=== PATIENT | male | born 1970 | race Caucasian/White ===

== ENCOUNTER 2020-11-15 10:19 | Emergency (ER) | payer BC ==
[~2020-11-15] VITALS: Ht 177.8 cm; Wt 79.4 kg
[2020-11-15 10:20] VITALS: BP_SYST 127
--- NOTE | 2020-11-15 10:20 | NUR ---
Patient to ER bed 7 to gown for evaluation. Side rails up. Report given to ALMAZ LÓPEZ.
--- NOTE | 2020-11-15 10:25 | NUR ---
Patient presented to ER C/O abdominal pain. Patient ambulatory to ER, afebrile, denies N/V/D, denies pain at this tie. Patient states he has intermittent abdominal pain with constipation x7 days. Patient reports being seen at and given Lefofloxacin & MOM.
--- NOTE | 2020-11-15 10:35 | NUR ---
ER Dr. GUZMAN at bedside examining patient.
[2020-11-15 11:17] LABS: BILIRUBIN,URINE 2+ (NEGATIVE); BLOOD, URINE 2+ (NEGATIVE); GLUCOSE,URINE NEGATIVE (NEGATIVE); KETONES,URINE 3+ (NEGATIVE); LEUKOCYTE ESTERASE ,URINE NEGATIVE (NEGATIVE); NITRITE, URINE NEGATIVE (NEGATIVE); PROTEIN URINE 1+ (NEGATIVE); UROBILINOGEN,URINE 0.2 (0.2-1.0)
[2020-11-15 11:19] LABS: CLARITY/URINE SLIGHTLY HAZY (CLEAR); COLOR,URINE AMBER (YELLOW)
[2020-11-15 11:51] LABS: BACTERIA,URINE FEW /HPF (None Seen); MUCUS,URINE 2+ /LPF (None Seen); WBC,URINE NONE SEEN /HPF (0-3)
[2020-11-15 11:54] LABS: BASOPHILS # (AUTO) 0.1 K/uL (0.0-0.2); BASOPHILS % (AUTO) 0.5 % (0.0-2.0); EOSINOPHILS % (AUTO) 0.2 % (0.0-4.0); HEMATOCRIT 39.7 % (36-54); HEMOGLOBIN 13.7 g/dL (14.0-18.0); LYMPHOCYTES # (AUTO) 1.1 K/uL (1.0-5.5); LYMPHOCYTES % (AUTO) 6.3 % (20.5-51.5); MEAN CORPUSCULAR HEMOGLOBIN 32 pg (27-31); MEAN CORPUSCULAR HGB CONC 35 % (32-36); MEAN CORPUSCULAR VOLUME 92 fL (79.0-98.0); MONOCYTES % (AUTO) 5.4 % (1.7-9.3); NEUTROPHILS # (AUTO) 15.5 K/uL (1.8-7.7); NEUTROPHILS % (AUTO) 87.6 % (40.0-70.0); PLATELET COUNT (AUTO) 248 K/uL (130-430); RED BLOOD CELL COUNT(AUTO) 4.31 MIL/uL (4.2-6.2); WHITE BLOOD COUNT (AUTO) 17.7 K/uL (4.8-10.8)
[2020-11-15 11:57] LABS: CALCIUM 9.1 mg/dL (8.4-11.0); CREATININE 0.98 mg/dL (0.55-1.30); POTASSIUM 3.9 mmol/L (3.5-5.1)
[2020-11-15] MEDS ORDERED: HYDR-3917 PO (12:03)
[2020-11-15 12:08] LABS: ALBUMIN 3.1 g/dL (3.4-4.8); TOTAL BILIRUBIN 0.3 mg/dL (0.0-1.0)
[2020-11-15 13:00] VITALS: BP_SYST 127
--- NOTE | 2020-11-15 13:00 | NUR ---
Patient given written and verbal discharge instructions and verbalizes understanding. ER MD discussed with patient the results and treatment provided. Patient in stable condition. ID arm band removed. IV catheter removed intact and dressing applied, no active bleeding. Rx of Levaquin, Tramadol, Flagyl given. Patient educated on pain management and to follow up with PMD. Pain Scale 0/10. Opportunity for questions provided and answered. Medication side effect fact sheet provided.
== END 2020-11-15 13:00 | disposition home or self-care (01) ==
LOC: SED 10:19
DX: R10.84 Generalized abdominal pain (principal); Z79.899 Other long term (current) drug therapy
CPT/HCPCS: 36415; 74018; 76376; 80053; 81000-TC; 83690-TC; 85025; 99285

== ENCOUNTER 2020-11-17 06:20 | Inpatient (IN) | payer BC, SELFPAY ==
[~2020-11-17] VITALS: Ht 177.8 cm; Wt 75.7 kg
[~2020-11-17 06:20] MED LIST: HYDR-3917 PO
[2020-11-17 06:35] VITALS: BP_SYST 120
[2020-11-17] MEDS ORDERED: NACL 0.9% 1,000 ML IV ONE (07:00)
[2020-11-17 07:46] LABS: BILIRUBIN,URINE NEGATIVE (NEGATIVE); BLOOD, URINE 2+ (NEGATIVE); COLOR,URINE YELLOW (YELLOW); GLUCOSE,URINE NEGATIVE (NEGATIVE); KETONES,URINE 3+ (NEGATIVE); LEUKOCYTE ESTERASE ,URINE NEGATIVE (NEGATIVE); NITRITE, URINE NEGATIVE (NEGATIVE); PROTEIN URINE NEGATIVE (NEGATIVE); UROBILINOGEN,URINE 0.2 (0.2-1.0)
[2020-11-17 07:48] LABS: BASOPHILS # (AUTO) 0.1 K/uL (0.0-0.2); BASOPHILS % (AUTO) 0.6 % (0.0-2.0); EOSINOPHILS % (AUTO) 0.1 % (0.0-4.0); HEMATOCRIT 42.1 % (36-54); HEMOGLOBIN 14.6 g/dL (14.0-18.0); LYMPHOCYTES # (AUTO) 1.4 K/uL (1.0-5.5); LYMPHOCYTES % (AUTO) 6.4 % (20.5-51.5); MEAN CORPUSCULAR HEMOGLOBIN 32 pg (27-31); MEAN CORPUSCULAR HGB CONC 35 % (32-36); MEAN CORPUSCULAR VOLUME 91 fL (79.0-98.0); MONOCYTES # (AUTO) 1.5 K/uL (0.0-1.0); MONOCYTES % (AUTO) 6.8 % (1.7-9.3); NEUTROPHILS # (AUTO) 18.6 K/uL (1.8-7.7); NEUTROPHILS % (AUTO) 86.1 % (40.0-70.0); PLATELET COUNT (AUTO) 285 K/uL (130-430); RED BLOOD CELL COUNT(AUTO) 4.63 MIL/uL (4.2-6.2); RED CELL DISTRIBUTION WIDTH 12.8 % (9.0-15.0); WHITE BLOOD COUNT (AUTO) 21.5 K/uL (4.8-10.8)
[2020-11-17 07:48] LABS: CLARITY/URINE SLIGHTLY CLOUDY (CLEAR)
[2020-11-17 08:14] LABS: CALCIUM 9.2 mg/dL (8.4-11.0); CREATININE 0.84 mg/dL (0.55-1.30); POTASSIUM 3.2 mmol/L (3.5-5.1)
[2020-11-17 08:16] LABS: INR 1.2 (0.80-1.20); PROTHROMBIN TIME 11.8 SECS (9.5-12.5)
[2020-11-17 08:25] LABS: BACTERIA,URINE FEW /HPF (None Seen); WBC,URINE 0-3 /HPF (0-3)
[2020-11-17 08:29] LABS: TOTAL BILIRUBIN 0.4 mg/dL (0.0-1.0)
[2020-11-17] MEDS ORDERED: MORPHINE 4 MG/ML INJ. SYRINGE IVP ONE (09:00)
[2020-11-17] MEDS ORDERED: MORPHINE 4 MG/ML INJ. SYRINGE ONE (09:01)
[2020-11-17] MEDS: KCL 20 mEq in D5/0.45NS 1000mL 1,000 ML IV SCH (10:47)
[2020-11-17 11:19] VITALS: BP_SYST 147
[2020-11-17] MEDS ORDERED: HYDROmorphone 1 MG INJ. 1 MG/ML AMPUL ONE ×2 (12:50→16:40)
[2020-11-17] MEDS: HYDROmorphone 1 MG INJ. 1 MG/ML AMPUL IVP PRN ×2 (12:57→16:48)
[2020-11-17] MEDS ORDERED: METOPROLOL TARTRATE 5 MG/5 ML VIAL IVP ONE (14:43)
[2020-11-17] MEDS ORDERED: BUPIVACAINE /PF 0.5% 30 ML VIAL INJ ONE (14:43)
[2020-11-17] MEDS ORDERED: MIDAZOLAM HCL 5 MG/5 ML VIAL IVP ONE (14:43)
[2020-11-17] MEDS ORDERED: KETOROLAC TROMETHAMINE 30 MG VIAL IVP ONE (14:43)
[2020-11-17] MEDS ORDERED: SUGAMMADEX SODIUM 200 MG/2 ML VIAL IV ONE (14:43)
[2020-11-17] MEDS ORDERED: ONDANSETRON HCL 4 MG/2 ML VIAL IVP ONE (14:43)
[2020-11-17] MEDS ORDERED: DEXAMETHASONE SOD PHOSPHATE 4 MG/ML VIAL IVP ONE (14:43)
[2020-11-17] MEDS ORDERED: NS 1000 ML IV.SOLN IV ONE (14:43)
[2020-11-17] MEDS ORDERED: LR 1,000 ML IV.SOLN IV ONE (14:43)
[2020-11-17] MEDS ORDERED: DESFLURANE 15 MIN GAS INH ONE (14:43)
[2020-11-17] MEDS ORDERED: fentaNYL CITRATE 250 MCG/5 ML AMP IV ONE (14:43)
[2020-11-17] MEDS ORDERED: PROPOFOL 200MG/ 20ML VIAL (DIPRIVAN) IV ONE (14:43)
[2020-11-17] MEDS ORDERED: NS IRRIG SOLN 1000 ML IR ONE (14:43)
[2020-11-17] MEDS ORDERED: ROCURONIUM BROMIDE 10 MG/ML (ZEMURON) IV ONE (14:43)
[2020-11-17] MEDS ORDERED: ACETAMINOPHEN 325 MG TABLET PO PRN (17:15)
[2020-11-17] MEDS ORDERED: ONDANSETRON HCL 4 MG/2 ML VIAL IVP PRN (17:15)
[2020-11-17 20:00] VITALS: BP_SYST 137
[2020-11-17] MEDS ORDERED: metroNIDAZOLE 500 mg/NS 200 ML IV ONE (20:29)
[2020-11-17] MEDS ORDERED: HYDROmorphone 1 MG INJ. 1 MG/ML AMPUL IVP PRN (21:00)
[2020-11-17] MEDS: HYDROmorphone 2 MG/ML VIAL IVP PRN (22:00)
[2020-11-17] MEDS: metroNIDAZOLE 500 mg/NS 100 ML IV SCH (22:21)
[2020-11-18] VITALS: BP_SYST 135
[2020-11-18] MEDS: HYDROmorphone 2 MG/ML VIAL IVP PRN ×6 (02:34→22:37)
[2020-11-18] MEDS: metroNIDAZOLE 500 mg/NS 100 ML IV SCH ×3 (05:32→20:16)
[2020-11-18] MEDS: KCL 20 mEq in D5/0.45NS 1000mL 1,000 ML IV SCH ×2 (06:00→10:27)
[2020-11-18 06:42] LABS: BASOPHILS # (AUTO) 0.1 K/uL (0.0-0.2); BASOPHILS % (AUTO) 0.7 % (0.0-2.0); EOSINOPHILS % (AUTO) 0.1 % (0.0-4.0); HEMATOCRIT 41.4 % (36-54); HEMOGLOBIN 14.2 g/dL (14.0-18.0); LYMPHOCYTES # (AUTO) 1.4 K/uL (1.0-5.5); LYMPHOCYTES % (AUTO) 6.1 % (20.5-51.5); MEAN CORPUSCULAR HEMOGLOBIN 31 pg (27-31); MEAN CORPUSCULAR HGB CONC 34 % (32-36); MEAN CORPUSCULAR VOLUME 91 fL (79.0-98.0); MONOCYTES # (AUTO) 1.8 K/uL (0.0-1.0); MONOCYTES % (AUTO) 8.3 % (1.7-9.3); NEUTROPHILS % (AUTO) 84.8 % (40.0-70.0); PLATELET COUNT (AUTO) 264 K/uL (130-430); RED BLOOD CELL COUNT(AUTO) 4.56 MIL/uL (4.2-6.2); WHITE BLOOD COUNT (AUTO) 22.3 K/uL (4.8-10.8)
[2020-11-18 07:49] LABS: CALCIUM 8.3 mg/dL (8.4-11.0); CREATININE 0.75 mg/dL (0.55-1.30); PHOSPHORUS 2.3 mg/dL (2.7-4.5); POTASSIUM 3.7 mmol/L (3.5-5.1)
[2020-11-18 08:00] VITALS: BP_SYST 110
[2020-11-18] MEDS: ENOXAPARIN SODIUM 40 MG/0.4 ML SYRINGE SUBCUT SCH (09:12)
[2020-11-18 12:10] VITALS: BP_SYST 131
[2020-11-18 16:00] VITALS: BP_SYST 136
[2020-11-18] MEDS ORDERED: PIPERACILLIN/TAZOBACTAM 3.375 GM/VIAL (ZOSYN) IV ONE ×2 (18:26→22:57)
[2020-11-18] MEDS: PIPERACILLIN/TAZO 3.375/DEX-IS 50 ML IV SCH (18:47)
[2020-11-18] MEDS ORDERED: DIATR MEGLU/DIATRIZ SOD 30 ML SOLUTION PO ONE (18:48)
[2020-11-18 22:05] VITALS: BP_SYST 122
[2020-11-19] VITALS: BP_SYST 141
[2020-11-19] MEDS: PIPERACILLIN/TAZO 3.375/DEX-IS 50 ML IV SCH ×5 (00:26→23:22)
[2020-11-19] MEDS: HYDROmorphone 2 MG/ML VIAL IVP PRN ×5 (02:52→20:27)
[2020-11-19] MEDS: metroNIDAZOLE 500 mg/NS 100 ML IV SCH ×4 (03:56→20:32)
[2020-11-19 04:03] VITALS: BP_SYST 128
[2020-11-19 07:12] LABS: BASOPHILS # (AUTO) 0.1 K/uL (0.0-0.2); BASOPHILS % (AUTO) 0.5 % (0.0-2.0); EOSINOPHILS % (AUTO) 0.1 % (0.0-4.0); HEMATOCRIT 39.9 % (36-54); HEMOGLOBIN 13.7 g/dL (14.0-18.0); LYMPHOCYTES # (AUTO) 1.5 K/uL (1.0-5.5); LYMPHOCYTES % (AUTO) 6.3 % (20.5-51.5); MEAN CORPUSCULAR HEMOGLOBIN 31 pg (27-31); MEAN CORPUSCULAR HGB CONC 34 % (32-36); MEAN CORPUSCULAR VOLUME 91 fL (79.0-98.0); MONOCYTES # (AUTO) 1.7 K/uL (0.0-1.0); MONOCYTES % (AUTO) 7.5 % (1.7-9.3); NEUTROPHILS # (AUTO) 19.8 K/uL (1.8-7.7); NEUTROPHILS % (AUTO) 85.6 % (40.0-70.0); PLATELET COUNT (AUTO) 266 K/uL (130-430); RED BLOOD CELL COUNT(AUTO) 4.38 MIL/uL (4.2-6.2); RED CELL DISTRIBUTION WIDTH 13.1 % (9.0-15.0); WHITE BLOOD COUNT (AUTO) 23.1 K/uL (4.8-10.8)
[2020-11-19 07:42] LABS: CALCIUM 8.9 mg/dL (8.4-11.0); CREATININE 0.86 mg/dL (0.55-1.30); POTASSIUM 4.4 mmol/L (3.5-5.1)
[2020-11-19 07:59] VITALS: BP_SYST 113
[2020-11-19] MEDS: ENOXAPARIN SODIUM 40 MG/0.4 ML SYRINGE SUBCUT SCH (08:38)
[2020-11-19 12:00] VITALS: BP_SYST 143
[2020-11-19] MEDS: KCL 20 mEq in D5/0.45NS 1000mL 1,000 ML IV SCH ×2 (14:45→20:28)
[2020-11-19 16:00] VITALS: BP_SYST 138
[2020-11-19] MEDS ORDERED: NEOMYCIN SULFATE 500 MG TABLET PO ONE ×2 (16:30→22:00)
[2020-11-19] MEDS ORDERED: NACL 0.9% 1,000 ML IV ONE (16:30)
[2020-11-19] MEDS ORDERED: MAGNESIUM CITRATE 300 ML ORAL SOLUTION PO ONE (16:45)
[2020-11-19 20:00] VITALS: BP_SYST 116
[2020-11-19] MEDS ORDERED: NEOMYCIN SULFATE 500 MG TABLET ONE (22:59)
[2020-11-20] MEDS: HYDROmorphone 2 MG/ML VIAL IVP PRN ×4 (00:41→13:21)
[2020-11-20 02:07] VITALS: BP_SYST 116
[2020-11-20] MEDS: metroNIDAZOLE 500 mg/NS 100 ML IV SCH ×3 (03:05→22:25)
[2020-11-20] MEDS: PIPERACILLIN/TAZO 3.375/DEX-IS 50 ML IV SCH ×2 (04:11→11:45)
[2020-11-20] MEDS ORDERED: SODIUM PHOSPHATE,MONO-DIBASIC 133 ML ENEMA RC ONE (06:00)
[2020-11-20] MEDS: ENOXAPARIN SODIUM 40 MG/0.4 ML SYRINGE SUBCUT SCH (07:35)
[2020-11-20 08:00] VITALS: BP_SYST 123
[2020-11-20] MEDS: KCL 20 mEq in D5/0.45NS 1000mL 1,000 ML IV SCH (11:45)
[2020-11-20 12:16] VITALS: BP_SYST 125
[2020-11-20] MEDS ORDERED: METOCLOPRAMIDE HCL 10 MG/2 ML VIAL IVP PRN (15:45)
[2020-11-20] MEDS ORDERED: MIDAZOLAM HCL 2 MG/2 ML VIAL (VERSED) IVP PRN (15:45)
[2020-11-20] MEDS ORDERED: HYDROmorphone 1 MG INJ. 1 MG/ML AMPUL IVP PRN ×2 (15:45)
[2020-11-20] MEDS ORDERED: LR 1,000 ML IV SCH (15:45)
[2020-11-20] MEDS ORDERED: MEPERIDINE HCL/PF 25 MG/ML DISP.SYRIN IVP PRN (15:45)
[2020-11-20] MEDS ORDERED: ONDANSETRON HCL 4 MG/2 ML VIAL IVP PRN ×2 (15:45→17:45)
[2020-11-20] MEDS ORDERED: LABETALOL 100 MG/ 20ML VIAL IVP PRN (15:45)
[2020-11-20 16:09] VITALS: BP_SYST 125
[2020-11-20] MEDS ORDERED: NALOXONE HCL 0.4 MG/ML AMP (NARCAN) IVP PRN (17:45)
[2020-11-20 19:50] VITALS: BP_SYST 141
[2020-11-20] MEDS: HYDROmorphone 1 MG INJ. 1 MG/ML AMPUL IVP PRN (20:41)
[2020-11-20] MEDS: D5/0.45 NS 1,000 ML IV SCH (20:47)
[2020-11-20] MEDS: CEFAZOLIN 2 GM IVPB PREMIX 50 ML IV SCH (21:17)
[2020-11-21] VITALS (7 sets, daily range): BP systolic 122–140
[2020-11-21] MEDS: HYDROmorphone 1 MG INJ. 1 MG/ML AMPUL IVP PRN ×8 (00:26→21:49)
[2020-11-21] MEDS: CEFAZOLIN 2 GM IVPB PREMIX 50 ML IV SCH (03:50)
[2020-11-21] MEDS: metroNIDAZOLE 500 mg/NS 100 ML IV SCH ×2 (05:03→22:59)
[2020-11-21 06:42] LABS: BASOPHILS % (AUTO) 0.1 % (0.0-2.0); HEMATOCRIT 35.3 % (36-54); LYMPHOCYTES # (AUTO) 1.1 K/uL (1.0-5.5); LYMPHOCYTES % (AUTO) 5.2 % (20.5-51.5); MEAN CORPUSCULAR HEMOGLOBIN 31 pg (27-31); MEAN CORPUSCULAR HGB CONC 34 % (32-36); MEAN CORPUSCULAR VOLUME 91 fL (79.0-98.0); MONOCYTES # (AUTO) 1.7 K/uL (0.0-1.0); MONOCYTES % (AUTO) 8.2 % (1.7-9.3); NEUTROPHILS % (AUTO) 86.5 % (40.0-70.0); PLATELET COUNT (AUTO) 297 K/uL (130-430); RED CELL DISTRIBUTION WIDTH 13.4 % (9.0-15.0); WHITE BLOOD COUNT (AUTO) 20.8 K/uL (4.8-10.8)
[2020-11-21 09:07] LABS: ALBUMIN 1.8 g/dL (3.4-4.8); CALCIUM 7.8 mg/dL (8.4-11.0); CREATININE 0.76 mg/dL (0.55-1.30); POTASSIUM 4.1 mmol/L (3.5-5.1); TOTAL BILIRUBIN 0.2 mg/dL (0.0-1.0)
[2020-11-21] MEDS: ENOXAPARIN SODIUM 40 MG/0.4 ML SYRINGE SUBCUT SCH (12:21)
[2020-11-21] MEDS: D5/0.45 NS 1,000 ML IV SCH (15:11)
[2020-11-21] MEDS: PIPERACILLIN/TAZO 4.5GM/DEX-IS 100 ML IV SCH (21:42)
[2020-11-22 00:31] VITALS: BP_SYST 147
[2020-11-22] MEDS: HYDROmorphone 1 MG INJ. 1 MG/ML AMPUL IVP PRN ×2 (01:38→21:35)
[2020-11-22] MEDS: D5/0.45 NS 1,000 ML IV SCH ×3 (01:44→22:38)
[2020-11-22] MEDS: PIPERACILLIN/TAZO 4.5GM/DEX-IS 100 ML IV SCH ×3 (05:11→21:38)
[2020-11-22] MEDS: metroNIDAZOLE 500 mg/NS 100 ML IV SCH ×3 (06:20→21:37)
[2020-11-22 08:00] VITALS: BP_SYST 158
[2020-11-22] MEDS: ENOXAPARIN SODIUM 40 MG/0.4 ML SYRINGE SUBCUT SCH (09:47)
[2020-11-22 13:44] VITALS: BP_SYST 162
[2020-11-22 17:09] VITALS: BP_SYST 134
[2020-11-22 18:35] LABS: HEMATOCRIT 35.7 % (36-54); HEMOGLOBIN 12.1 g/dL (14.0-18.0); MEAN CORPUSCULAR HEMOGLOBIN 31 pg (27-31); MEAN CORPUSCULAR HGB CONC 34 % (32-36); MEAN CORPUSCULAR VOLUME 91 fL (79.0-98.0); PLATELET COUNT (AUTO) 383 K/uL (130-430); RED BLOOD CELL COUNT(AUTO) 3.93 MIL/uL (4.2-6.2); RED CELL DISTRIBUTION WIDTH 13.2 % (9.0-15.0); WHITE BLOOD COUNT (AUTO) 21.6 K/uL (4.8-10.8)
[2020-11-22 19:47] LABS: BAND % (MANUAL) 2 % (0-6); BASOPHILS % (MANUAL) 0 % (0-2); EOSINOPHILS % (MANUAL) 0 % (0-7); LYMPHOCYTES % (MANUAL) 12 % (20-46); MONOCYTES % (MANUAL) 7 % (0-11)
[2020-11-22 20:00] VITALS: BP_SYST 128
[2020-11-23] VITALS (7 sets, daily range): BP systolic 118–133
[2020-11-23] MEDS: metroNIDAZOLE 500 mg/NS 100 ML IV SCH ×3 (06:00→23:08)
[2020-11-23] MEDS: D5/0.45 NS 1,000 ML IV SCH ×3 (06:27→23:08)
[2020-11-23] MEDS: PIPERACILLIN/TAZO 4.5GM/DEX-IS 100 ML IV SCH ×3 (06:33→23:08)
[2020-11-23 06:52] LABS: BASOPHILS # (AUTO) 0.1 K/uL (0.0-0.2); BASOPHILS % (AUTO) 0.7 % (0.0-2.0); EOSINOPHILS % (AUTO) 0.1 % (0.0-4.0); HEMATOCRIT 35.1 % (36-54); HEMOGLOBIN 11.9 g/dL (14.0-18.0); LYMPHOCYTES # (AUTO) 1.9 K/uL (1.0-5.5); LYMPHOCYTES % (AUTO) 10.4 % (20.5-51.5); MEAN CORPUSCULAR HEMOGLOBIN 31 pg (27-31); MEAN CORPUSCULAR HGB CONC 34 % (32-36); MEAN CORPUSCULAR VOLUME 91 fL (79.0-98.0); MONOCYTES # (AUTO) 1.3 K/uL (0.0-1.0); MONOCYTES % (AUTO) 6.7 % (1.7-9.3); NEUTROPHILS # (AUTO) 15.3 K/uL (1.8-7.7); PLATELET COUNT (AUTO) 391 K/uL (130-430); RED BLOOD CELL COUNT(AUTO) 3.86 MIL/uL (4.2-6.2); RED CELL DISTRIBUTION WIDTH 13.4 % (9.0-15.0); WHITE BLOOD COUNT (AUTO) 18.6 K/uL (4.8-10.8)
[2020-11-23 07:23] LABS: ALBUMIN 2.1 g/dL (3.4-4.8); CALCIUM 8.1 mg/dL (8.4-11.0); CREATININE 0.92 mg/dL (0.55-1.30); POTASSIUM 3.1 mmol/L (3.5-5.1); TOTAL BILIRUBIN 0.2 mg/dL (0.0-1.0)
[2020-11-23 07:50] LABS: NEUTROPHILS % (AUTO) 82.1 % (40.0-70.0)
[2020-11-23] MEDS: ENOXAPARIN SODIUM 40 MG/0.4 ML SYRINGE SUBCUT SCH (10:15)
[2020-11-23] MEDS ORDERED: POTASSIUM CHLORIDE 20 MEQ TAB.PRT.SR PO ONE (13:00)
[2020-11-23] MEDS ORDERED: POTASSIUM CHLORIDE 20 MEQ TAB.PRT.SR ONE (13:25)
[2020-11-23] MEDS ORDERED: TEMAZEPAM 7.5 MG CAPSULE PO SCH (22:24)
[2020-11-23] MEDS ORDERED: TEMAZEPAM 7.5 MG CAPSULE PO ONE (22:30)
[2020-11-24 01:20] VITALS: BP_SYST 111
[2020-11-24] MEDS: ACETAMINOPHEN 325 MG TABLET PO PRN ×4 (03:50→22:28)
[2020-11-24] MEDS: PIPERACILLIN/TAZO 4.5GM/DEX-IS 100 ML IV SCH ×3 (05:59→23:29)
[2020-11-24] MEDS: metroNIDAZOLE 500 mg/NS 100 ML IV SCH ×3 (06:00→22:34)
[2020-11-24 07:54] LABS: BASOPHILS # (AUTO) 0.1 K/uL (0.0-0.2); BASOPHILS % (AUTO) 0.4 % (0.0-2.0); EOSINOPHILS # (AUTO) 0.1 K/uL (0.0-0.4); EOSINOPHILS % (AUTO) 0.5 % (0.0-4.0); HEMATOCRIT 34.1 % (36-54); HEMOGLOBIN 11.6 g/dL (14.0-18.0); LYMPHOCYTES # (AUTO) 2.2 K/uL (1.0-5.5); LYMPHOCYTES % (AUTO) 13.3 % (20.5-51.5); MEAN CORPUSCULAR HEMOGLOBIN 31 pg (27-31); MEAN CORPUSCULAR HGB CONC 34 % (32-36); MEAN CORPUSCULAR VOLUME 91 fL (79.0-98.0); MONOCYTES # (AUTO) 1.2 K/uL (0.0-1.0); MONOCYTES % (AUTO) 7.1 % (1.7-9.3); NEUTROPHILS # (AUTO) 13.1 K/uL (1.8-7.7); NEUTROPHILS % (AUTO) 78.7 % (40.0-70.0); PLATELET COUNT (AUTO) 414 K/uL (130-430); RED BLOOD CELL COUNT(AUTO) 3.75 MIL/uL (4.2-6.2); RED CELL DISTRIBUTION WIDTH 13.4 % (9.0-15.0); WHITE BLOOD COUNT (AUTO) 16.7 K/uL (4.8-10.8)
[2020-11-24 08:00] VITALS: BP_SYST 125
[2020-11-24 08:18] LABS: CALCIUM 8.5 mg/dL (8.4-11.0); CREATININE 0.85 mg/dL (0.55-1.30); POTASSIUM 3.1 mmol/L (3.5-5.1)
[2020-11-24] MEDS ORDERED: POTASSIUM CHLORIDE 20 MEQ TAB.PRT.SR PO ONE ×2 (10:00→17:00)
[2020-11-24] MEDS: ENOXAPARIN SODIUM 40 MG/0.4 ML SYRINGE SUBCUT SCH (10:21)
[2020-11-24] MEDS: D5/0.45 NS 1,000 ML IV SCH ×2 (11:00→21:45)
[2020-11-24 16:36] VITALS: BP_SYST 127
[2020-11-24 20:00] VITALS: BP_SYST 134
[2020-11-24] MEDS ORDERED: TEMAZEPAM 15 MG CAPSULE ONE (22:19)
[2020-11-24] MEDS: TEMAZEPAM 7.5 MG CAPSULE PO SCH (22:20)
[2020-11-25] MEDS: HYDROmorphone 1 MG INJ. 1 MG/ML AMPUL IVP PRN ×3 (02:21→16:35)
[2020-11-25] MEDS: metroNIDAZOLE 500 mg/NS 100 ML IV SCH ×3 (05:30→22:00)
[2020-11-25] MEDS: PIPERACILLIN/TAZO 4.5GM/DEX-IS 100 ML IV SCH ×3 (06:56→22:00)
[2020-11-25 07:23] LABS: BASOPHILS # (AUTO) 0.1 K/uL (0.0-0.2); BASOPHILS % (AUTO) 0.4 % (0.0-2.0); EOSINOPHILS # (AUTO) 0.2 K/uL (0.0-0.4); EOSINOPHILS % (AUTO) 1.1 % (0.0-4.0); HEMATOCRIT 33.5 % (36-54); HEMOGLOBIN 11.5 g/dL (14.0-18.0); LYMPHOCYTES # (AUTO) 2.5 K/uL (1.0-5.5); LYMPHOCYTES % (AUTO) 15.3 % (20.5-51.5); MEAN CORPUSCULAR HEMOGLOBIN 31 pg (27-31); MEAN CORPUSCULAR HGB CONC 34 % (32-36); MEAN CORPUSCULAR VOLUME 91 fL (79.0-98.0); MONOCYTES % (AUTO) 6.4 % (1.7-9.3); NEUTROPHILS # (AUTO) 12.3 K/uL (1.8-7.7); PLATELET COUNT (AUTO) 397 K/uL (130-430); RED CELL DISTRIBUTION WIDTH 13.5 % (9.0-15.0)
[2020-11-25] MEDS: D5/0.45 NS 1,000 ML IV SCH (07:45)
[2020-11-25 08:00] VITALS: BP_SYST 131
[2020-11-25 08:12] LABS: NEUTROPHILS % (AUTO) 76.8 % (40.0-70.0)
[2020-11-25 08:25] LABS: CALCIUM 8.3 mg/dL (8.4-11.0); CREATININE 0.82 mg/dL (0.55-1.30)
[2020-11-25] MEDS: ENOXAPARIN SODIUM 40 MG/0.4 ML SYRINGE SUBCUT SCH (09:45)
[2020-11-25 11:38] VITALS: BP_SYST 135
[2020-11-25 15:32] VITALS: BP_SYST 135
[2020-11-25] MEDS: ACETAMINOPHEN 325 MG TABLET PO PRN ×2 (15:35→21:31)
[2020-11-25 20:00] VITALS: BP_SYST 117
[2020-11-25] MEDS: TEMAZEPAM 7.5 MG CAPSULE PO SCH (21:00)
[2020-11-25] MEDS ORDERED: TEMAZEPAM 7.5 MG CAPSULE ONE (21:54)
[2020-11-25] MEDS ORDERED: TEMAZEPAM 15 MG CAPSULE ONE (22:08)
[2020-11-26] MEDS: HYDROmorphone 1 MG INJ. 1 MG/ML AMPUL IVP PRN (02:18)
[2020-11-26] MEDS: PIPERACILLIN/TAZO 4.5GM/DEX-IS 100 ML IV SCH ×3 (06:36→22:33)
[2020-11-26] MEDS: metroNIDAZOLE 500 mg/NS 100 ML IV SCH ×3 (06:37→22:33)
[2020-11-26 07:53] LABS: HEMATOCRIT 35.7 % (36-54); HEMOGLOBIN 12.1 g/dL (14.0-18.0); MEAN CORPUSCULAR HEMOGLOBIN 31 pg (27-31); MEAN CORPUSCULAR HGB CONC 34 % (32-36); MEAN CORPUSCULAR VOLUME 91 fL (79.0-98.0); PLATELET COUNT (AUTO) 444 K/uL (130-430); RED BLOOD CELL COUNT(AUTO) 3.91 MIL/uL (4.2-6.2); RED CELL DISTRIBUTION WIDTH 13.4 % (9.0-15.0); WHITE BLOOD COUNT (AUTO) 24.7 K/uL (4.8-10.8)
[2020-11-26 08:00] VITALS: BP_SYST 123
[2020-11-26] MEDS: ENOXAPARIN SODIUM 40 MG/0.4 ML SYRINGE SUBCUT SCH (09:00)
[2020-11-26 09:02] LABS: POTASSIUM 3.8 mmol/L (3.5-5.1)
[2020-11-26 09:38] LABS: ALBUMIN 2.3 g/dL (3.4-4.8); CALCIUM 8.8 mg/dL (8.4-11.0); CREATININE 0.84 mg/dL (0.55-1.30); TOTAL BILIRUBIN 0.4 mg/dL (0.0-1.0)
[2020-11-26 12:00] VITALS: BP_SYST 120
[2020-11-26 13:10] LABS: BASOPHILS # (AUTO) 0.3 K/uL (0.0-0.2); BASOPHILS % (AUTO) 1.1 % (0.0-2.0); EOSINOPHILS % (AUTO) 0.1 % (0.0-4.0); HEMATOCRIT 35.5 % (36-54); LYMPHOCYTES # (AUTO) 1.3 K/uL (1.0-5.5); LYMPHOCYTES % (AUTO) 5.3 % (20.5-51.5); MEAN CORPUSCULAR HEMOGLOBIN 31 pg (27-31); MEAN CORPUSCULAR HGB CONC 34 % (32-36); MEAN CORPUSCULAR VOLUME 91 fL (79.0-98.0); MONOCYTES # (AUTO) 0.9 K/uL (0.0-1.0); MONOCYTES % (AUTO) 3.7 % (1.7-9.3); NEUTROPHILS # (AUTO) 21.9 K/uL (1.8-7.7); NEUTROPHILS % (AUTO) 89.8 % (40.0-70.0); PLATELET COUNT (AUTO) 461 K/uL (130-430); RED CELL DISTRIBUTION WIDTH 13.8 % (9.0-15.0); WHITE BLOOD COUNT (AUTO) 24.4 K/uL (4.8-10.8)
[2020-11-26 14:55] LABS: ATYPICAL LYMPHOCYTES % 1 % (0-0); BASOPHILS % (MANUAL) 0 % (0-2); EOSINOPHILS % (MANUAL) 0 % (0-7); LYMPHOCYTES % (MANUAL) 12 % (20-46); MONOCYTES % (MANUAL) 6 % (0-11)
[2020-11-26] MEDS ORDERED: DIATR MEGLU/DIATRIZ SOD 30 ML SOLUTION PO ONE (15:19)
[2020-11-26 16:00] VITALS: BP_SYST 144
[2020-11-26 20:00] VITALS: BP_SYST 135
[2020-11-26] MEDS: TEMAZEPAM 7.5 MG CAPSULE PO SCH (21:00)
[2020-11-27] VITALS: BP_SYST 140
[2020-11-27] MEDS: ACETAMINOPHEN 325 MG TABLET PO PRN (01:22)
[2020-11-27] MEDS: PIPERACILLIN/TAZO 4.5GM/DEX-IS 100 ML IV SCH ×3 (06:27→22:38)
[2020-11-27] MEDS: metroNIDAZOLE 500 mg/NS 100 ML IV SCH ×3 (06:27→21:14)
[2020-11-27 07:31] LABS: BASOPHILS # (AUTO) 0.1 K/uL (0.0-0.2); BASOPHILS % (AUTO) 0.3 % (0.0-2.0); EOSINOPHILS # (AUTO) 0.1 K/uL (0.0-0.4); EOSINOPHILS % (AUTO) 0.3 % (0.0-4.0); HEMOGLOBIN 12.2 g/dL (14.0-18.0); LYMPHOCYTES % (AUTO) 11.4 % (20.5-51.5); MEAN CORPUSCULAR HEMOGLOBIN 31 pg (27-31); MEAN CORPUSCULAR HGB CONC 34 % (32-36); MEAN CORPUSCULAR VOLUME 92 fL (79.0-98.0); MONOCYTES # (AUTO) 0.9 K/uL (0.0-1.0); MONOCYTES % (AUTO) 5.1 % (1.7-9.3); NEUTROPHILS # (AUTO) 14.5 K/uL (1.8-7.7); NEUTROPHILS % (AUTO) 82.9 % (40.0-70.0); PLATELET COUNT (AUTO) 458 K/uL (130-430); RED BLOOD CELL COUNT(AUTO) 3.93 MIL/uL (4.2-6.2); RED CELL DISTRIBUTION WIDTH 13.7 % (9.0-15.0); WHITE BLOOD COUNT (AUTO) 17.5 K/uL (4.8-10.8)
[2020-11-27 08:00] VITALS: BP_SYST 118
[2020-11-27 08:04] LABS: CALCIUM 8.8 mg/dL (8.4-11.0); CREATININE 0.8 mg/dL (0.55-1.30); POTASSIUM 4.2 mmol/L (3.5-5.1)
[2020-11-27] MEDS: ENOXAPARIN SODIUM 40 MG/0.4 ML SYRINGE SUBCUT SCH (09:00)
[2020-11-27 12:29] VITALS: BP_SYST 127
[2020-11-27 16:00] VITALS: BP_SYST 103
[2020-11-27 19:00] VITALS: BP_SYST 103
[2020-11-27] MEDS: TEMAZEPAM 7.5 MG CAPSULE PO SCH (21:00)
[2020-11-28] MEDS: ACETAMINOPHEN 325 MG TABLET PO PRN (02:15)
[2020-11-28] MEDS ORDERED: KETOROLAC TROMETHAMINE 30 MG VIAL ONE (04:38)
[2020-11-28] MEDS: KETOROLAC TROMETHAMINE 30 MG VIAL IVP PRN (04:49)
[2020-11-28] MEDS: metroNIDAZOLE 500 mg/NS 100 ML IV SCH (06:19)
[2020-11-28] MEDS: PIPERACILLIN/TAZO 4.5GM/DEX-IS 100 ML IV SCH ×3 (06:58→22:16)
[2020-11-28 08:33] VITALS: BP_SYST 128
[2020-11-28] MEDS: ENOXAPARIN SODIUM 40 MG/0.4 ML SYRINGE SUBCUT SCH (08:34)
[2020-11-28 12:00] VITALS: BP_SYST 135
[2020-11-28 12:05] LABS: BASOPHILS # (AUTO) 0.1 K/uL (0.0-0.2); BASOPHILS % (AUTO) 0.5 % (0.0-2.0); EOSINOPHILS # (AUTO) 0.1 K/uL (0.0-0.4); EOSINOPHILS % (AUTO) 0.3 % (0.0-4.0); HEMATOCRIT 38.1 % (36-54); HEMOGLOBIN 12.7 g/dL (14.0-18.0); LYMPHOCYTES # (AUTO) 2.3 K/uL (1.0-5.5); LYMPHOCYTES % (AUTO) 12.5 % (20.5-51.5); MEAN CORPUSCULAR HEMOGLOBIN 31 pg (27-31); MEAN CORPUSCULAR HGB CONC 34 % (32-36); MEAN CORPUSCULAR VOLUME 91 fL (79.0-98.0); MONOCYTES # (AUTO) 1.3 K/uL (0.0-1.0); MONOCYTES % (AUTO) 6.9 % (1.7-9.3); NEUTROPHILS # (AUTO) 14.4 K/uL (1.8-7.7); NEUTROPHILS % (AUTO) 79.8 % (40.0-70.0); PLATELET COUNT (AUTO) 584 K/uL (130-430); RED BLOOD CELL COUNT(AUTO) 4.17 MIL/uL (4.2-6.2); RED CELL DISTRIBUTION WIDTH 13.9 % (9.0-15.0); WHITE BLOOD COUNT (AUTO) 18.1 K/uL (4.8-10.8)
[2020-11-28 16:00] VITALS: BP_SYST 121; BP_SYST 135
[2020-11-28] MEDS: TEMAZEPAM 7.5 MG CAPSULE PO SCH ×2 (21:00→23:38)
[2020-11-28 21:28] VITALS: BP_SYST 112
[2020-11-28] MEDS ORDERED: TEMAZEPAM 15 MG CAPSULE ONE (23:37)
[2020-11-29] VITALS: BP_SYST 119
[2020-11-29] MEDS ORDERED: traMADol HCL HCL 50 MG TABLET (ULTRAM) ONE (02:05)
[2020-11-29] MEDS ORDERED: KETOROLAC TROMETHAMINE 30 MG VIAL ONE (02:12)
[2020-11-29] MEDS: KETOROLAC TROMETHAMINE 30 MG VIAL IVP PRN (02:19)
[2020-11-29] MEDS: ACETAMINOPHEN 325 MG TABLET PO PRN (05:07)
[2020-11-29] MEDS: PIPERACILLIN/TAZO 4.5GM/DEX-IS 100 ML IV SCH ×2 (05:07→13:52)
[2020-11-29 08:00] VITALS: BP_SYST 121
[2020-11-29] MEDS: ENOXAPARIN SODIUM 40 MG/0.4 ML SYRINGE SUBCUT SCH (09:48)
[2020-11-29 11:19] VITALS: BP_SYST 124
[2020-11-29 12:32] LABS: BASOPHILS # (AUTO) 0.1 K/uL (0.0-0.2); BASOPHILS % (AUTO) 0.4 % (0.0-2.0); EOSINOPHILS # (AUTO) 0.1 K/uL (0.0-0.4); EOSINOPHILS % (AUTO) 0.4 % (0.0-4.0); HEMATOCRIT 33.8 % (36-54); HEMOGLOBIN 11.5 g/dL (14.0-18.0); LYMPHOCYTES # (AUTO) 1.6 K/uL (1.0-5.5); LYMPHOCYTES % (AUTO) 11.2 % (20.5-51.5); MEAN CORPUSCULAR HEMOGLOBIN 31 pg (27-31); MEAN CORPUSCULAR HGB CONC 34 % (32-36); MEAN CORPUSCULAR VOLUME 91 fL (79.0-98.0); MONOCYTES # (AUTO) 0.9 K/uL (0.0-1.0); MONOCYTES % (AUTO) 6.5 % (1.7-9.3); NEUTROPHILS # (AUTO) 11.5 K/uL (1.8-7.7); NEUTROPHILS % (AUTO) 81.5 % (40.0-70.0); PLATELET COUNT (AUTO) 450 K/uL (130-430); RED BLOOD CELL COUNT(AUTO) 3.71 MIL/uL (4.2-6.2); RED CELL DISTRIBUTION WIDTH 13.8 % (9.0-15.0); WHITE BLOOD COUNT (AUTO) 14.1 K/uL (4.8-10.8)
[2020-11-29 15:57] VITALS: BP_SYST 106
[2020-11-29] MEDS ORDERED: ACET-10 PO (16:51)
[2020-11-29] MEDS ORDERED: AUG875 PO (16:52)
[2020-11-29] MEDS ORDERED: METR500T PO (16:52)
[2020-11-29 20:15] VITALS: BP_SYST 139
== END 2020-11-29 21:45 | disposition home health service (06) | DRG 329 ==
LOC: SED 06:20 → SMU 10:00
PROVIDERS: ADMIT Family Medicine; ATTEND Family Medicine
PROC: 0DTJ0ZZ Resection of Appendix, Open Approach (ICD-10-PCS; 2020-11-20)
PROC: 0DBN0ZZ Excision of Sigmoid Colon, Open Approach (ICD-10-PCS; principal; 2020-11-20 14:45)
DX: K52.89 Other specified noninfective gastroenteritis and colitis (principal); K65.1 Peritoneal abscess; K63.0 Abscess of intestine; R65.10 Systemic inflammatory response syndrome (SIRS) of non-infectious origin without acute organ dysfunction; N40.0 Benign prostatic hyperplasia without lower urinary tract symptoms; Z20.822 Contact with and (suspected) exposure to COVID-19; Z93.3 Colostomy status; Z79.899 Other long term (current) drug therapy
CPT/HCPCS: 36415; 71045; 76376; 80048; 80053; 81000-TC; 82150-TC; 82272; 82378; 83690-TC; 83735-TC; 84100-TC; 85007; 85025; 85027; 85610-TC; 86886; 86900; 86901; 86920; 87045-TC; 87046; 87070-TC; 87075-TC; 87081; 87186-TC; 87230-TC; 88304; 88305; 93005; 94010; 96361; 96374; 96375; C1727; C9399; J0690; J1100; J1170; J1650; J1885; J1956; J2250; J2270; J2405; J2543; J2704; J3010; J3490; J7030; J7120; Q9964; Q9967

== ENCOUNTER 2021-01-30 13:05 | Emergency (ER) | payer BC, SELFPAY ==
[~2021-01-30] VITALS: Ht 177.8 cm; Wt 71.2 kg
[~2021-01-30 13:05] MED LIST changes: +ACET1TAB23 PO; +AUG875 PO; -HYDR-3917 PO; +METR500T PO
[2021-01-30 13:17] VITALS: BP_SYST 130
[2021-01-30 13:51] LABS: BASOPHILS # (AUTO) 0.1 K/uL (0.0-0.2); BASOPHILS % (AUTO) 0.6 % (0.0-2.0); EOSINOPHILS # (AUTO) 0.1 K/uL (0.0-0.4); HEMATOCRIT 42.1 % (36-54); HEMOGLOBIN 14.5 g/dL (14.0-18.0); LYMPHOCYTES # (AUTO) 1.7 K/uL (1.0-5.5); LYMPHOCYTES % (AUTO) 14.6 % (20.5-51.5); MEAN CORPUSCULAR HEMOGLOBIN 31 pg (27-31); MEAN CORPUSCULAR HGB CONC 34 % (32-36); MEAN CORPUSCULAR VOLUME 90 fL (79.0-98.0); MONOCYTES # (AUTO) 0.7 K/uL (0.0-1.0); MONOCYTES % (AUTO) 5.7 % (1.7-9.3); NEUTROPHILS % (AUTO) 78.1 % (40.0-70.0); PLATELET COUNT (AUTO) 218 K/uL (130-430); RED BLOOD CELL COUNT(AUTO) 4.67 MIL/uL (4.2-6.2); RED CELL DISTRIBUTION WIDTH 13.4 % (9.0-15.0); WHITE BLOOD COUNT (AUTO) 11.5 K/uL (4.8-10.8)
[2021-01-30 14:01] LABS: CALCIUM 8.7 mg/dL (8.4-11.0); CREATININE 0.96 mg/dL (0.55-1.30); POTASSIUM 3.9 mmol/L (3.5-5.1)
[2021-01-30 14:07] LABS: ALBUMIN 3.5 g/dL (3.4-4.8); TOTAL BILIRUBIN 0.3 mg/dL (0.0-1.0)
[2021-01-30 14:57] VITALS: BP_SYST 117
== END 2021-01-30 14:57 | disposition home or self-care (01) ==
LOC: SED 13:05
DX: R10.31 Right lower quadrant pain (principal); N40.0 Benign prostatic hyperplasia without lower urinary tract symptoms; Z79.899 Other long term (current) drug therapy
CPT/HCPCS: 36415; 76376; 80053; 83690; 85025; 99284